=== PATIENT | female | born 2005 ===

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

== ENCOUNTER → 2025-01-29 16:02 | Outpatient (CLI) | payer OTHER, SELFPAY ==
[2025-02-02 03:12] LABS: Chlamydia trachomatis Negative (Negative); Mycoplasma genitalium Negative (Negative); Neisseria gonorrhoeae Negative (Negative)
== END ==
PROVIDERS: PCP Family Medicine; Referring Provider Student in an Organized Health Care Education/Training Program; Visit Provider Student in an Organized Health Care Education/Training Program
DX: Z11.3 Encounter for screening for infections with a predominantly sexual mode of transmission (principal)
CPT/HCPCS: 87491; 87563; 87591

== ENCOUNTER → 2025-06-19 11:01 | Outpatient (CLI) | payer OTHER, SELFPAY ==
[2025-06-19 12:09] LABS: Add Manual Diff / Slide Review NO; Hematocrit 37.9 % (36-46); Hemoglobin 12.4 g/dL (12.0-16.0); Lymphocytes Absolute Auto 1600 /uL (1100-4500); Mean Corpuscular HGB Conc 32.7 % (30-36); Mean Corpuscular Hemoglobin 25.6 PG (26-34); Mean Corpuscular Volume 78.2 fL (80-100); Platelet Count 384 X10^3/uL (150-400)
[2025-06-19 12:32] LABS: Alanine Aminotransferase 16 IU/L (<35); Albumin 4.8 g/dL (3.5-5.0); Albumin Globulin Ratio 1.6 (1.0-2.8); Alkaline Phosphatase 61 U/L (38-126); Blood Urea Nitrogen 13 mg/dL (7-17); Calcium 9.6 mg/dL (8.4-10.2); Carbon Dioxide 24 mmol/L (22-32); Chloride 103 mmol/L (98-107); Estimated Glomerular Filt Rate > 60 mL/min (>60); Globulin 3.0 g/dL (1.7-4.1); Glucose 83 mg/dL (70-99); HEMOLYSIS < 15 (0-50); Potassium 4.4 mmol/L (3.4-5.1); Sodium 139 mmol/L (137-145); Total Protein 7.8 g/dL (6.3-8.2)
[2025-06-19 12:53] LABS: COVID-19 CEPHEID 4-PLEX PCR Negative (Negative); Influenza A - CEPHEID Flu A NEGATIVE (NEGATIVE); Influenza B - CEPHEID Flu B NEGATIVE (NEGATIVE)
[2025-06-19 13:03] LABS: Thyroid Stimulating Hormone 0.896 uIU/mL (0.47-4.68)
[2025-06-19 13:06] LABS: Ferritin 6 ng/mL (6-137)
== END ==
PROVIDERS: Chiropractor; PCP Family Medicine; Referring Provider Family Medicine; Visit Provider Family Medicine
DX: G43.909 Migraine, unspecified, not intractable, without status migrainosus (principal); M54.9 Dorsalgia, unspecified; K58.9 Irritable bowel syndrome, unspecified; R05.1 Acute cough; N92.0 Excessive and frequent menstruation with regular cycle
CPT/HCPCS: 36415; 80053; 82728; 84443; 85025; 87637